=== PATIENT | female | born 1990 | race Caucasian/White ===

== ENCOUNTER 2023-02-10 12:33 | Inpatient (IN) | payer OTHER, MEDICAID ==
[~2023-02-10] VITALS: Ht 154.9 cm; Wt 49.9 kg
[2023-02-10 12:35] VITALS: BP_SYST 117; PULSE 99; RESP 18; TEMP 97.2; O2SAT 100
[2023-02-10 13:03] LABS: BASOPHILS # (AUTO) 0.1 K/uL (0.0-0.2); BASOPHILS % (AUTO) 0.3 % (0.0-2.0); EOSINOPHILS # (AUTO) 0.1 K/uL (0.0-0.4); EOSINOPHILS % (AUTO) 0.4 % (0.0-4.0); HEMATOCRIT 40.2 % (36-48); HEMOGLOBIN 13.3 g/dL (12.0-16.0); LYMPHOCYTES # (AUTO) 1.8 K/uL (1.0-5.5); LYMPHOCYTES % (AUTO) 9.5 % (20.5-51.5); MEAN CORPUSCULAR HEMOGLOBIN 32 pg (27-31); MEAN CORPUSCULAR HGB CONC 33 % (32-36); MEAN CORPUSCULAR VOLUME 96 fL (79.0-98.0); MONOCYTES # (AUTO) 1.4 K/uL (0.0-1.0); MONOCYTES % (AUTO) 7.5 % (1.7-9.3); NEUTROPHILS # (AUTO) 15.6 K/uL (1.8-7.7); NEUTROPHILS % (AUTO) 82.3 % (40.0-70.0); PLATELET COUNT (AUTO) 192 K/uL (130-430); RED CELL DISTRIBUTION WIDTH 13.9 % (9.0-15.0)
[2023-02-10 13:15] LABS: CREATININE 0.81 mg/dL (0.55-1.30); POTASSIUM 3.6 mmol/L (3.5-5.1)
[2023-02-10 13:19] LABS: ALBUMIN 3.8 g/dL (3.4-4.8); TOTAL BILIRUBIN 0.5 mg/dL (0.0-1.0); TOTAL PROTEIN, SERUM 7.3 g/dL (6.4-8.3)
[2023-02-10 13:22] LABS: BILIRUBIN,URINE 1+ (NEGATIVE); BLOOD, URINE NEGATIVE (NEGATIVE); COLOR,URINE YELLOW (YELLOW); GLUCOSE,URINE NEGATIVE (NEGATIVE); KETONES,URINE TRACE (NEGATIVE); LEUKOCYTE ESTERASE ,URINE NEGATIVE (NEGATIVE); NITRITE, URINE NEGATIVE (NEGATIVE); PROTEIN URINE TRACE (NEGATIVE)
[2023-02-10 13:26] LABS: CLARITY/URINE HAZY (CLEAR)
[2023-02-10 13:27] LABS: BACTERIA,URINE FEW /HPF (None Seen); MUCUS,URINE 2+ /LPF (None Seen); RBC,URINE 0-3 /HPF (0-3)
[2023-02-10] MEDS ORDERED: cefTRIAXone 1 GM in D5W 50 ML IV ONE (15:15)
[2023-02-10] MEDS ORDERED: NACL 0.9% 2,000 ML IV ONE (15:15)
[2023-02-10] MEDS ORDERED: metroNIDAZOLE 500 mg/NS 100 ML IV ONE ×2 (15:15→18:30)
[2023-02-10] MEDS ORDERED: DOXYCYCLINE HYCLATE 100 MG in D5W 100 ML IV ONE (15:15)
[2023-02-10] MEDS ORDERED: KETOROLAC TROMETHAMINE 30 MG VIAL IVP ONE (15:15)
[2023-02-10] MEDS ORDERED: cefTRIAXone 1 GM VIAL ONE (15:52)
[2023-02-10] MEDS ORDERED: DOXYCYCLINE HYCLATE 100 MG VIAL IV ONE (16:46)
[2023-02-10] MEDS ORDERED: THIA100T70 PO (16:55)
[2023-02-10] MEDS ORDERED: QUET300T20 PO (16:55)
[2023-02-10] MEDS ORDERED: TRAZ-251 PO (16:55)
[2023-02-10] MEDS ORDERED: KETOROLAC TROMETHAMINE 30 MG VIAL IVP PRN (17:00)
[2023-02-10] MEDS: ACETAMINOPHEN 500 MG TABLET PO PRN (17:04)
[2023-02-10 18:36] VITALS: BP_SYST 93; PULSE 74; RESP 16; TEMP 97.6; O2SAT 98
[2023-02-10] MEDS ORDERED: QUEtiapine FUMARATE 100 MG TABLET PO PRN (19:00)
[2023-02-10] MEDS ORDERED: ONDANSETRON HCL 4 MG/2 ML VIAL IVP PRN (19:00)
[2023-02-10 20:00] VITALS: BP_SYST 101; PULSE 85; RESP 16; TEMP 98.5
[2023-02-10] MEDS ORDERED: traZODone HCL 50 MG TABLET (DESYREL) PO SCH (21:00)
[2023-02-10] MEDS: DOXYCYCLINE HYCLATE 100 MG CAPSULE PO SCH (22:34)
[2023-02-10] MEDS: KETOROLAC TROMETHAMINE 30 MG VIAL IVP PRN (22:41)
[2023-02-11 00:53] VITALS: BP_SYST 92; PULSE 79; RESP 15; TEMP 98.9; O2SAT 100
[2023-02-11 05:42] LABS: BASOPHILS % (AUTO) 0.3 % (0.0-2.0); EOSINOPHILS # (AUTO) 0.1 K/uL (0.0-0.4); EOSINOPHILS % (AUTO) 0.8 % (0.0-4.0); HEMATOCRIT 37.4 % (36-48); LYMPHOCYTES # (AUTO) 1.5 K/uL (1.0-5.5); MEAN CORPUSCULAR HEMOGLOBIN 31 pg (27-31); MEAN CORPUSCULAR HGB CONC 32 % (32-36); MEAN CORPUSCULAR VOLUME 97 fL (79.0-98.0); MONOCYTES # (AUTO) 1.6 K/uL (0.0-1.0); MONOCYTES % (AUTO) 10.6 % (1.7-9.3); NEUTROPHILS # (AUTO) 11.5 K/uL (1.8-7.7); NEUTROPHILS % (AUTO) 78.3 % (40.0-70.0); PLATELET COUNT (AUTO) 177 K/uL (130-430); RED BLOOD CELL COUNT(AUTO) 3.87 MIL/uL (4.2-6.2); RED CELL DISTRIBUTION WIDTH 13.6 % (9.0-15.0); WHITE BLOOD COUNT (AUTO) 14.7 K/uL (4.8-10.8)
[2023-02-11 06:11] LABS: ALBUMIN 3.1 g/dL (3.4-4.8); CALCIUM 8.8 mg/dL (8.4-11.0); CREATININE 0.7 mg/dL (0.55-1.30); POTASSIUM 4.1 mmol/L (3.5-5.1); TOTAL BILIRUBIN 0.3 mg/dL (0.0-1.0); TOTAL PROTEIN, SERUM 6.5 g/dL (6.4-8.3)
[2023-02-11] MEDS: metroNIDAZOLE 500 MG TABLET PO SCH ×3 (06:46→22:29)
[2023-02-11 07:00] VITALS: O2SAT 98
[2023-02-11] MEDS: ACETAMINOPHEN 325 MG TABLET PO PRN (07:17)
[2023-02-11 09:00] VITALS: BP_SYST 103; PULSE 79; RESP 16; TEMP 98.3; O2SAT 98
[2023-02-11] MEDS ORDERED: TRAZ-250 PO (10:09)
[2023-02-11] MEDS ORDERED: MELA10CA PO (10:09)
[2023-02-11] MEDS ORDERED: CARI6CAP PO (10:09)
[2023-02-11] MEDS ORDERED: QUET300T2 PO ×2 (10:09→10:48)
[2023-02-11] MEDS ORDERED: NALT50TA PO (10:09)
[2023-02-11] MEDS ORDERED: MULT-1089 PO (10:09)
[2023-02-11] MEDS ORDERED: BUPR300T55 PO (10:09)
[2023-02-11] MEDS ORDERED: FOLI-43 PO (10:09)
[2023-02-11] MEDS ORDERED: FERR250T2 PO (10:09)
[2023-02-11] MEDS: THIAMINE HCL 100 MG TABLET PO SCH (10:22)
[2023-02-11] MEDS: DOXYCYCLINE HYCLATE 100 MG CAPSULE PO SCH ×2 (10:22→21:15)
[2023-02-11] MEDS ORDERED: BENZ1TAB82 PO (10:48)
[2023-02-11] MEDS ORDERED: POLY17PO4 PO (10:48)
[2023-02-11] MEDS ORDERED: PROP10TA10 PO (10:48)
[2023-02-11] MEDS ORDERED: ARIP10TA9 IM (11:31)
[2023-02-11] MEDS ORDERED: BENZTROPINE MESYLATE 1 MG TABLET PO SCH (11:45)
[2023-02-11] MEDS ORDERED: PROPRANOLOL HCL 10 MG TABLET (INDERAL) PO PRN (11:45)
[2023-02-11] MEDS ORDERED: BENZTROPINE MESYLATE 1 MG TABLET PO PRN (11:45)
[2023-02-11] MEDS ORDERED: POLYETHYLENE GLYCOL 3350, 17 GM/ POWD.PACK PO PRN (11:45)
[2023-02-11] MEDS ORDERED: MULTIVITAMINS TAB 1 TABLET PO ONE (12:15)
[2023-02-11] MEDS ORDERED: ARIPiprazole 5 MG TAB PO ONE (12:15)
[2023-02-11] MEDS ORDERED: NICOTINE 21 MG/24 HR PATCH.TD24 TD ONE (12:15)
[2023-02-11] MEDS ORDERED: buPROPion HCL 150 MG XL TAB PO ONE (12:15)
[2023-02-11] MEDS: KETOROLAC TROMETHAMINE 30 MG VIAL IVP PRN (12:18)
[2023-02-11 20:00] VITALS: BP_SYST 90; PULSE 88; RESP 18; TEMP 98.2; O2SAT 99
[2023-02-11] MEDS: QUEtiapine FUMARATE 100 MG TABLET PO SCH (21:15)
[2023-02-11] MEDS: traZODone HCL 50 MG TABLET (DESYREL) PO SCH (21:15)
[2023-02-12 05:47] LABS: BASOPHILS % (AUTO) 0.4 % (0.0-2.0); EOSINOPHILS # (AUTO) 0.1 K/uL (0.0-0.4); EOSINOPHILS % (AUTO) 1.2 % (0.0-4.0); HEMATOCRIT 33.2 % (36-48); HEMOGLOBIN 10.9 g/dL (12.0-16.0); LYMPHOCYTES # (AUTO) 1.4 K/uL (1.0-5.5); LYMPHOCYTES % (AUTO) 17.3 % (20.5-51.5); MEAN CORPUSCULAR HEMOGLOBIN 32 pg (27-31); MEAN CORPUSCULAR HGB CONC 33 % (32-36); MEAN CORPUSCULAR VOLUME 97 fL (79.0-98.0); MONOCYTES # (AUTO) 0.8 K/uL (0.0-1.0); MONOCYTES % (AUTO) 9.4 % (1.7-9.3); NEUTROPHILS # (AUTO) 5.9 K/uL (1.8-7.7); NEUTROPHILS % (AUTO) 71.7 % (40.0-70.0); PLATELET COUNT (AUTO) 172 K/uL (130-430); RED BLOOD CELL COUNT(AUTO) 3.43 MIL/uL (4.2-6.2); RED CELL DISTRIBUTION WIDTH 13.8 % (9.0-15.0); WHITE BLOOD COUNT (AUTO) 8.3 K/uL (4.8-10.8)
[2023-02-12] MEDS: metroNIDAZOLE 500 MG TABLET PO SCH ×3 (06:31→22:43)
[2023-02-12 06:34] LABS: CREATININE 0.66 mg/dL (0.55-1.30); POTASSIUM 3.7 mmol/L (3.5-5.1)
[2023-02-12 07:30] VITALS: BP_SYST 107; PULSE 79; RESP 21; TEMP 99; O2SAT 100
[2023-02-12] MEDS: NICOTINE 21 MG/24 HR PATCH.TD24 TD SCH (09:00)
[2023-02-12] MEDS: ARIPiprazole 5 MG TAB PO SCH (09:41)
[2023-02-12] MEDS: THIAMINE HCL 100 MG TABLET PO SCH (09:42)
[2023-02-12] MEDS: DOXYCYCLINE HYCLATE 100 MG CAPSULE PO SCH ×2 (09:42→22:43)
[2023-02-12] MEDS: FOLIC ACID 1 MG TABLET PO SCH (09:42)
[2023-02-12] MEDS: MULTIVITAMINS TAB 1 TABLET PO SCH (09:42)
[2023-02-12] MEDS: buPROPion HCL 150 MG XL TAB PO SCH (09:43)
[2023-02-12 11:30] VITALS: BP_SYST 93; PULSE 83; RESP 19; TEMP 98.4; O2SAT 98
[2023-02-12 16:00] VITALS: BP_SYST 103; PULSE 81; RESP 17; TEMP 99.2; O2SAT 95
[2023-02-12] MEDS: ACETAMINOPHEN 325 MG TABLET PO PRN (16:45)
[2023-02-12 19:00] VITALS: BP_SYST 103; PULSE 77; RESP 16; TEMP 99.1; O2SAT 98
[2023-02-12 20:00] VITALS: BP_SYST 103; PULSE 77; RESP 16; TEMP 99.1; O2SAT 98
[2023-02-12] MEDS: traZODone HCL 50 MG TABLET (DESYREL) PO SCH (22:42)
[2023-02-12] MEDS: QUEtiapine FUMARATE 100 MG TABLET PO SCH (22:43)
[2023-02-13 00:11] VITALS: BP_SYST 104; PULSE 90; RESP 15; TEMP 97.6; O2SAT 99
[2023-02-13] MEDS: metroNIDAZOLE 500 MG TABLET PO SCH ×3 (05:18→22:00)
[2023-02-13 08:00] VITALS: BP_SYST 108; PULSE 76; RESP 17; TEMP 97.1; O2SAT 98
[2023-02-13 08:07] LABS: HEPATITIS A AB, IgM Negative (Negative); HEPATITIS B CORE AB, IgM Negative (Negative); HEPATITIS B SURFACE AG Negative (Negative); HEPATITIS C VIRUS AB Non Reactive (Non Reactive)
[2023-02-13 08:30] VITALS: BP_SYST 108; PULSE 76; RESP 17; TEMP 97.1; O2SAT 98
[2023-02-13] MEDS: NICOTINE 21 MG/24 HR PATCH.TD24 TD SCH (09:00)
[2023-02-13] MEDS: MULTIVITAMINS TAB 1 TABLET PO SCH (10:50)
[2023-02-13] MEDS: DOXYCYCLINE HYCLATE 100 MG CAPSULE PO SCH ×2 (10:50→22:02)
[2023-02-13] MEDS: buPROPion HCL 150 MG XL TAB PO SCH (10:50)
[2023-02-13] MEDS: ARIPiprazole 5 MG TAB PO SCH (10:50)
[2023-02-13] MEDS: FOLIC ACID 1 MG TABLET PO SCH (10:50)
[2023-02-13] MEDS: THIAMINE HCL 100 MG TABLET PO SCH (10:55)
[2023-02-13] MEDS: ACETAMINOPHEN 325 MG TABLET PO PRN (17:16)
[2023-02-13 17:25] VITALS: O2SAT 98
[2023-02-13 20:00] VITALS: BP_SYST 108; PULSE 64; RESP 20; TEMP 98.6; TEMP 98.9; O2SAT 100
[2023-02-13] MEDS: traZODone HCL 50 MG TABLET (DESYREL) PO SCH (22:01)
[2023-02-13] MEDS: QUEtiapine FUMARATE 100 MG TABLET PO SCH (22:01)
[2023-02-14] MEDS: metroNIDAZOLE 500 MG TABLET PO SCH ×3 (05:54→21:33)
[2023-02-14 07:21] LABS: ALBUMIN 3.1 g/dL (3.4-4.8); CREATININE 0.73 mg/dL (0.55-1.30); POTASSIUM 3.6 mmol/L (3.5-5.1); TOTAL BILIRUBIN 0.2 mg/dL (0.0-1.0); TOTAL PROTEIN, SERUM 6.6 g/dL (6.4-8.3)
[2023-02-14 07:52] LABS: BASOPHILS % (AUTO) 0.4 % (0.0-2.0); EOSINOPHILS # (AUTO) 0.1 K/uL (0.0-0.4); EOSINOPHILS % (AUTO) 2.4 % (0.0-4.0); HEMATOCRIT 36.4 % (36-48); HEMOGLOBIN 11.9 g/dL (12.0-16.0); LYMPHOCYTES # (AUTO) 1.4 K/uL (1.0-5.5); LYMPHOCYTES % (AUTO) 25.2 % (20.5-51.5); MEAN CORPUSCULAR HEMOGLOBIN 31 pg (27-31); MEAN CORPUSCULAR HGB CONC 33 % (32-36); MEAN CORPUSCULAR VOLUME 96 fL (79.0-98.0); MONOCYTES # (AUTO) 0.8 K/uL (0.0-1.0); MONOCYTES % (AUTO) 15.6 % (1.7-9.3); NEUTROPHILS % (AUTO) 56.4 % (40.0-70.0); PLATELET COUNT (AUTO) 217 K/uL (130-430); RED CELL DISTRIBUTION WIDTH 13.7 % (9.0-15.0); WHITE BLOOD COUNT (AUTO) 5.4 K/uL (4.8-10.8)
[2023-02-14 08:00] VITALS: BP_SYST 115; PULSE 88; RESP 17; TEMP 96.8; O2SAT 96
[2023-02-14 08:15] LABS: ERYTHROCYTE SEDIMENTATION RATE 51 MM/HR (0-20)
[2023-02-14] MEDS: ACETAMINOPHEN 325 MG TABLET PO PRN (08:27)
[2023-02-14] MEDS: MULTIVITAMINS TAB 1 TABLET PO SCH (08:27)
[2023-02-14] MEDS: buPROPion HCL 150 MG XL TAB PO SCH (08:27)
[2023-02-14] MEDS: DOXYCYCLINE HYCLATE 100 MG CAPSULE PO SCH ×2 (08:28→21:33)
[2023-02-14] MEDS: FOLIC ACID 1 MG TABLET PO SCH (08:28)
[2023-02-14] MEDS: ARIPiprazole 5 MG TAB PO SCH (08:28)
[2023-02-14] MEDS: THIAMINE HCL 100 MG TABLET PO SCH (08:28)
[2023-02-14 08:30] VITALS: O2SAT 96
[2023-02-14] MEDS: NICOTINE 21 MG/24 HR PATCH.TD24 TD SCH (09:00)
[2023-02-14] MEDS ORDERED: ROCPM1 IV (11:33)
[2023-02-14] MEDS ORDERED: METR-154 PO (11:33)
[2023-02-14] MEDS ORDERED: DOXY100C5 PO (11:33)
[2023-02-14] MEDS ORDERED: MULT400T13 PO (11:33)
[2023-02-14 20:00] VITALS: BP_SYST 110; PULSE 67; RESP 20; TEMP 98.9; O2SAT 99
[2023-02-14] MEDS: traZODone HCL 50 MG TABLET (DESYREL) PO SCH (21:33)
[2023-02-14] MEDS: QUEtiapine FUMARATE 100 MG TABLET PO SCH (21:33)
[2023-02-15] MEDS: metroNIDAZOLE 500 MG TABLET PO SCH ×3 (05:43→21:01)
[2023-02-15] MEDS: ACETAMINOPHEN 500 MG TABLET PO PRN (05:55)
[2023-02-15 08:00] VITALS: BP_SYST 102; PULSE 76; RESP 18; TEMP 102; O2SAT 98
[2023-02-15] MEDS: NICOTINE 21 MG/24 HR PATCH.TD24 TD SCH (09:00)
[2023-02-15] MEDS: ARIPiprazole 5 MG TAB PO SCH (10:21)
[2023-02-15] MEDS: MULTIVITAMINS TAB 1 TABLET PO SCH (10:22)
[2023-02-15] MEDS: buPROPion HCL 150 MG XL TAB PO SCH (10:22)
[2023-02-15] MEDS: THIAMINE HCL 100 MG TABLET PO SCH (10:22)
[2023-02-15] MEDS: FOLIC ACID 1 MG TABLET PO SCH (10:22)
[2023-02-15] MEDS: DOXYCYCLINE HYCLATE 100 MG CAPSULE PO SCH ×2 (10:23→21:01)
[2023-02-15 12:00] VITALS: BP_SYST 100; PULSE 75; RESP 18; TEMP 98.1; O2SAT 98
[2023-02-15] MEDS: ACETAMINOPHEN 325 MG TABLET PO PRN (15:56)
[2023-02-15 16:00] VITALS: BP_SYST 99; PULSE 19; RESP 19; TEMP 97.8; O2SAT 99
[2023-02-15 20:00] VITALS: BP_SYST 110; PULSE 66; RESP 18; TEMP 98.7; O2SAT 100
[2023-02-15 20:06] LABS: FTA-Ab (T PALLIDUM) Reactive (Non Reactive)
[2023-02-15] MEDS: traZODone HCL 50 MG TABLET (DESYREL) PO SCH (21:01)
[2023-02-15] MEDS: QUEtiapine FUMARATE 100 MG TABLET PO SCH (21:02)
[2023-02-16 00:45] VITALS: BP_SYST 106; PULSE 42; RESP 20; TEMP 97.6; O2SAT 96
[2023-02-16] MEDS: metroNIDAZOLE 500 MG TABLET PO SCH ×2 (05:54→13:21)
[2023-02-16 08:00] VITALS: BP_SYST 96; PULSE 71; RESP 18; TEMP 98.8; O2SAT 98
[2023-02-16 08:43] VITALS: BP_SYST 96; PULSE 71; RESP 18; TEMP 98.8; O2SAT 98
[2023-02-16] MEDS: NICOTINE 21 MG/24 HR PATCH.TD24 TD SCH (09:00)
[2023-02-16] MEDS: THIAMINE HCL 100 MG TABLET PO SCH (10:48)
[2023-02-16] MEDS: MULTIVITAMINS TAB 1 TABLET PO SCH (10:48)
[2023-02-16] MEDS: ARIPiprazole 5 MG TAB PO SCH (10:48)
[2023-02-16] MEDS: buPROPion HCL 150 MG XL TAB PO SCH (10:49)
[2023-02-16] MEDS: FOLIC ACID 1 MG TABLET PO SCH (10:49)
[2023-02-16] MEDS: DOXYCYCLINE HYCLATE 100 MG CAPSULE PO SCH (10:49)
[2023-02-16 12:00] VITALS: BP_SYST 95; PULSE 70; RESP 18; TEMP 97.8; O2SAT 97
== END 2023-02-16 13:45 | DRG 872 ==
LOC: SED 12:33 → SMU 16:45
PROVIDERS: ADMIT Internal Medicine; ATTEND Internal Medicine
DX: A41.9 Sepsis, unspecified organism (principal); E44.1 Mild protein-calorie malnutrition; N73.9 Female pelvic inflammatory disease, unspecified; N70.93 Salpingitis and oophoritis, unspecified; F19.10 Other psychoactive substance abuse, uncomplicated; Z79.899 Other long term (current) drug therapy; Z88.5 Allergy status to narcotic agent; A53.9 Syphilis, unspecified
CPT/HCPCS: 36415; 71045; 76376; 80048; 80053; 80074; 81000; 81001; 81015; 83605; 83690; 85025; 85651-TC; 86592; 86780; 87040; 87086; 93005; 96365; 96367; 96375; 99285; J0696; J1885; J3490; J7060